=== PATIENT | female | born 1960 | race African-American/Black ===

== ENCOUNTER 2021-09-16 18:33 | Emergency (ER) | payer MEDICAID ==
[~2021-09-16] VITALS: Ht 154.9 cm; Wt 127.0 kg
[2021-09-16] MEDS ORDERED: BENICAR40 MG PO (18:42)
[2021-09-16] MEDS ORDERED: AMLODIPINE BESY10 MG PO (18:43)
[2021-09-16 19:08] LABS: BASO % 0.3 % (0.0-1.0); EOS # 0.2 10*3/uL (0.0-0.4); EOS % 1.3 % (1.0-4.0); HEMATOCRIT 41.5 % (37.0-47.0); LYMPH # 3.7 10*3/uL (1.3-4.4); LYMPH % 32.5 % (27.0-41.0); MEAN CELL VOLUME 81.9 fl (81.0-99.0); MEAN CORPUSCULAR HGB CONC 30.6 g/dl (33.0-37.0); MEAN PLATELET VOLUME 11.2 fl (9.6-12.3); MONO # 0.9 10*3/uL (0.1-1.0); MONO % 7.6 % (3.0-9.0); NEUT # 6.5 10*3/uL (2.3-7.9); PLATELET COUNT AUTOMATED 242 10*3/uL (130-400); RED BLOOD COUNT 5.07 10*6/uL (4.10-5.10); RED CELL DISTRI WIDTH 14.9 % (0-14.5); WHITE BLOOD COUNT 11.3 10*3/uL (4.8-10.8)
[2021-09-16 19:26] LABS: ALKALINE PHOSPHATASE 113 U/L (45-117); BUN 13 mg/dl (7-24); CHLORIDE 105 mmol/L (98-107); CREATININE 0.85 mg/dL (0.55-1.02); POTASSIUM 4.1 mmol/L (3.5-5.1); SGOT/AST 15 IU/L (3-35); SGPT/ALT 25 U/L (12-78); SODIUM 139 mmol/L (136-145); TOTAL PROTEIN 7.6 gm/dL (6.4-8.2)
[2021-09-16 19:34] LABS: THYROID STIM HORMONE (HS) 0.514 uIU/ml (0.358-4.75)
== END 2021-09-16 20:30 | disposition home or self-care (01) ==
LOC: ED 18:33
PROVIDERS: Internal Medicine
DX: E11.9 Type 2 diabetes mellitus without complications (principal); Z88.2 Allergy status to sulfonamides; Z79.899 Other long term (current) drug therapy

== ENCOUNTER 2022-10-12 22:54 | Emergency (ER) | payer OTHER ==
[~2022-10-12 22:54] MED LIST: AMLODIPINE BESY10 MG PO; BENICAR40 MG PO
[2022-10-12] MEDS ORDERED: PREDNISONE20 M1 PO (23:23)
[2022-10-12] MEDS ORDERED: ZITHROMAX250 MG PO (23:23)
== END 2022-10-12 23:36 | disposition home or self-care (01) ==
LOC: ED 22:54
DX: J40 Bronchitis, not specified as acute or chronic (principal); Z88.2 Allergy status to sulfonamides

== ENCOUNTER 2023-06-26 17:55 | Emergency (ER) | payer MEDICARE, OTHER ==
[~2023-06-26] VITALS: Ht 152.4 cm; Wt 115.7 kg
[~2023-06-26 17:55] MED LIST changes: +PREDNISONE20 M1 PO; +ZITHROMAX250 MG PO
[2023-06-26] MEDS ORDERED: AMLODIPINE BESY10 MG PO (18:09)
[2023-06-26] MEDS ORDERED: LOTENSIN HCT 21 EACH PO (18:10)
[2023-06-26] MEDS ORDERED: JARDIANCE10 MG PO (18:10)
[2023-06-26 20:59] LABS: BASO % 0.2 % (0.0-1.0); EOS % 0.4 % (1.0-4.0); HEMATOCRIT 43.3 % (37.0-47.0); LYMPH # 0.6 10*3/uL (1.3-4.4); LYMPH % 5.8 % (27.0-41.0); MEAN CELL VOLUME 82.2 fl (81.0-99.0); MEAN CORPUSCULAR HGB CONC 30.5 g/dl (33.0-37.0); MEAN PLATELET VOLUME 11.2 fl (9.6-12.3); MONO # 1.2 10*3/uL (0.1-1.0); MONO % 11.2 % (3.0-9.0); NEUT # 8.4 10*3/uL (2.3-7.9); PLATELET COUNT AUTOMATED 223 10*3/uL (130-400); RED BLOOD COUNT 5.27 10*6/uL (4.10-5.10); RED CELL DISTRI WIDTH 16.7 % (0-14.5); WHITE BLOOD COUNT 10.3 10*3/uL (4.8-10.8)
[2023-06-26 21:11] LABS: ACT PARTIAL THROMBO TIME 31.1 SECONDS (20.0-32.1)
[2023-06-26 21:50] LABS: ALKALINE PHOSPHATASE 142 U/L (46-116); BUN 10 mg/dl (9-23); CHLORIDE 103 mmol/L (98-107); LIPASE 27 U/L (12-53); POTASSIUM 3.9 mmol/L (3.4-5.1); SGPT/ALT 110 U/L (5-49)
[2023-06-26] MEDS ORDERED: PAXLOVID 300-11 EAC3 PO (22:53)
== END 2023-06-26 22:59 | disposition home or self-care (01) ==
LOC: ED 17:55
PROVIDERS: Internal Medicine
DX: U07.1 COVID-19 (principal); R53.1 Weakness; R10.2 Pelvic and perineal pain; Z88.2 Allergy status to sulfonamides; F17.210 Nicotine dependence, cigarettes, uncomplicated

== ENCOUNTER 2024-10-07 10:42 | Emergency (ER) | payer OTHER ==
[~2024-10-07] VITALS: Wt 110.2 kg
[~2024-10-07 10:42] MED LIST changes: +JARDIANCE10 MG PO; +LOTENSIN HCT 21 EACH PO; +PAXLOVID 300-11 EAC3 PO
[2024-10-07] MEDS ORDERED: NAPROSYN500 MG PO (11:22)
[2024-10-07] MEDS ORDERED: CYCLOBENZAPRINE5 M3 PO (11:22)
[2024-10-08 05:06] LABS: HBsAG SCREEN Negative (Negative); HCV Ab Non Reactive (Non Reactive); HEP B CORE Ab, IgM Negative (Negative)
== END 2024-10-07 11:34 | disposition home or self-care (01) ==
LOC: ED 10:42
PROVIDERS: Physician Assistant Medical
DX: S46.912A Strain of unspecified muscle, fascia and tendon at shoulder and upper arm level, left arm, initial encounter (principal); K08.89 Other specified disorders of teeth and supporting structures; E11.9 Type 2 diabetes mellitus without complications; Z88.2 Allergy status to sulfonamides; Z79.899 Other long term (current) drug therapy; X50.0XXA Overexertion from strenuous movement or load, initial encounter; Y93.E9 Activity, other interior property and clothing maintenance; Y92.89 Other specified places as the place of occurrence of the external cause; Y99.8 Other external cause status